=== PATIENT | male | born 1990 | race Caucasian/White ===

== ENCOUNTER 2019-01-18 08:52 | Day surgery (SDC) | payer OTHER ==
[2019-01-18] MEDS ORDERED: MIDAZOLAM 1 MG/ML 2 ML INJ (13:45)
[2019-01-18] MEDS ORDERED: ROPIVACAINE 0.5 % 30 ML VIAL (13:45)
[2019-01-18] MEDS ORDERED: PROPOFOL 0 ML (13:45)
[2019-01-18] MEDS ORDERED: METOCLOPRAMIDE 10 MG INJ (13:45)
[2019-01-18] MEDS ORDERED: ROCURONIUM 50 MG INJ ×3 (13:45→15:07)
[2019-01-18] MEDS ORDERED: KETOROLAC 30 MG INJ (13:46)
[2019-01-18] MEDS ORDERED: CEFAZOLIN 1 GM INJ (13:48)
[2019-01-18] MEDS ORDERED: FENTAnyl 50 MCG/ML VIAL ×2 (13:48→14:26)
[2019-01-18] MEDS ORDERED: HYDROmorphONE 1 MG/5 ML IV SYRINGE IV ×3 (14:00)
[2019-01-18] MEDS ORDERED: FENTAnyl 50 MCG/ML VIAL IV ×2 (14:00)
[2019-01-18] MEDS ORDERED: DIPHENHYDRAMINE 50 MG INJ IV (14:00)
[2019-01-18] MEDS ORDERED: KETOROLAC 30 MG INJ IV (14:00)
[2019-01-18] MEDS ORDERED: PROPOFOL 20 ML ×2 (14:24→15:07)
[2019-01-18] MEDS ORDERED: ONDANSETRON 4 MG INJ (14:27)
[2019-01-18] MEDS ORDERED: NEOSTIGMINE 10 MG INJ (16:19)
[2019-01-18] MEDS ORDERED: GLYCOPYRROLATE 0.4 MG INJ (16:19)
[2019-01-18] MEDS: ONDANSETRON 4 MG INJ IV (17:09)
[2019-01-18] MEDS: MEPERIDINE 25 MG INJ IV (17:09)
[2019-01-18] MEDS: FENTAnyl 50 MCG/ML VIAL IV (17:09)
== END 2019-01-18 18:20 | disposition home or self-care (01) ==
LOC: SDS 08:52
DX: K40.30 Unilateral inguinal hernia, with obstruction, without gangrene, not specified as recurrent (principal)
CPT/HCPCS: 49650; 88304